=== PATIENT | male | born 1945 | race Caucasian/White ===

== ENCOUNTER → 2018-01-05 | Outpatient (CLI) | payer OTHER ==
[~2018-01-05] VITALS: Ht 177.8 cm; Wt 88.5 kg
[~2018-01-05] MED LIST: ASPIR-TRIN325 MG PO; ATORVASTATIN CA40 MG PO; BYSTOLIC 5 MG5 M1 PO; CELEBREX 200 M200 M1 PO; IMDUR 30 MG TAB30 M1 PO; LEVOTHYROXINE100 MC1 PO; LIPITOR 20 MG T20 M1 PO; VITAMIN B-12500 MCG PO
--- NOTE | ~2018-01-05 | CATHLAB ---
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 A PINNACLE 6FR Sheath #[id number] sheath was inserted into the RFA^. Coronary angiography was performed using coronary diagnostic catheters. The right coronary system was accessed and visualized with a JR4 catheter. The left coronary system was accessed and visualized with a JL4 catheter. The left ventricle was accessed and visualized with a PIGTAIL catheter. Left ventricular/Aortic Valve gradient assessed via catheter pullback. Left ventriculogram was performed in 30 degree projection. Closure device was deployed with a 6 Fr MYNXGRIP 6/7F #[id number]. The patient tolerated the procedure well and there were no complications associated with the procedure. There was no hematoma. Intraoperative Conscious Sedation Sedation start time: Case end Time: 8.16 Fentanyl 50 mcg Versed 1.5 mg Fluoro Time: 6.21 minutes Dose: DAP 9130. cGycm2 1097 mGy Contrast Type and Amount: Omnipaque 155 ml Diagnostic Cath [facility] [place] [place] [address] INVASIVE PROCEDURE REPORT Name: NARDA ONEAL Room #: [facility]#: [id number] Admission: 01/05/18 Attend Phys: Juan David Lewis, Discharge: Date of : 41 Date of Service: 01/05/18 0911 Report #: [id number] Left Main 20-30% distal plaquing LAD The LAD extended to the inferoapex. The proximal LAD stent was widely patent with scattered 20-30% calcific plaquing. Beyond the stent, the LAD tapered to a relatively small caliber vessel Diagonal 1 Relatively small with mild plaquing Diagonal 2 Relatively small diameter but large distribution with a 70% proximal stenosis. FFR 0.92, not meeting the threshold for approaching percutaneously Circumflex Large but nondominant and comprised of a single large bifurcating marginal branch. 30% proximal plaquing Right Coronary Large and dominant. Mild scattered calcific plaquing R PDA The mid posterior descending exhibited a 65% stenosis. RPLV Moderate in size, diffuse plaquing without high-grade stenosis Left Ventriculography The left ventricle is normal in size with normal contractility. The left ventricular ejection fraction is estimated to be 65%. Left ventricular wall motion abnormalities are not present. There is no mitral insufficiency. Hemodynamics The aortic pressure is 163/73 mmHg with a mean of 102 mmHg. The left ventricular pressure is 198/-6 mmHg with a mean of mmHg. The left ventricular end diastolic pressure is 20 mmHg. There was no gradient across the aortic valve upon pullback. Pullback from the left ventricle to the aorta revealed no gradient across the aortic valve. PCI Technique Lesion A LAUNCHER 6FR EBU 4 #[id number] Guide Catheter was used to engage the ostium. A Echovox Pressure Wire 175 cm [id number] Interventional Guidewire was used to cross the lesion. Conclusion 1. Normal global and regional systolic function. EF 65% 2. LM plaquing 20-30% 3. Widely patent proximal LAD stent with mild, diffuse calcific plaquing throughout the LAD 4. Second diagonal branch with 70% proximal stenosis. Relatively small diameter vessel with fairly large distribution. FFR 0.92 5. Mild calcific plaquing in a large, non-dominant circumflex 6. RCA dominant. 65% mid PDA stenosis [facility] [address] [place] [address] INVASIVE PROCEDURE REPORT Name: NARDA ONEAL Courtney Room #: [facility] David#: [id number] Admission: 01/05/18 Attend Phys: Juan David Lewis, Discharge: Date of : 41 Date of Service: 01/05/18 0911 Report #: [id number] Recommendations Cardiac Rehabilitation Referral Aggressive Medical Therapy <ELECTRONICALLY SIGNED> By: Juan David Lewis MD, FACC 01/05/18910 0 0 Juan David Lewis MD, FAC /INF
[2018-01-05 07:11] VITALS: BP 158/78
== END | disposition home or self-care (01) ==
LOC: CATH 01-04 07:51
DX: I25.10 Atherosclerotic heart disease of native coronary artery without angina pectoris (principal); Z90.49 Acquired absence of other specified parts of digestive tract; I10 Essential (primary) hypertension; E78.5 Hyperlipidemia, unspecified; I65.29 Occlusion and stenosis of unspecified carotid artery; Z82.49 Family history of ischemic heart disease and other diseases of the circulatory system; Z95.5 Presence of coronary angioplasty implant and graft

== ENCOUNTER → 2021-04-06 | Outpatient (CLI) | payer OTHER, BC | LOC: SJCVC 13:37 | PROVIDERS: ATTEND Internal Medicine | DX: R94.31 Abnormal electrocardiogram [ECG] [EKG] (principal); I11.9 Hypertensive heart disease without heart failure; I25.10 Atherosclerotic heart disease of native coronary artery without angina pectoris; E78.5 Hyperlipidemia, unspecified; I65.23 Occlusion and stenosis of bilateral carotid arteries; Z79.82 Long term (current) use of aspirin; Z79.899 Other long term (current) drug therapy ==